=== PATIENT | female | born 1950 | race Caucasian/White ===

== ENCOUNTER 2017-01-08 10:23 | Outpatient (CLI) | payer BC, OTHER ==
--- NOTE | 2017-01-14 18:27 | DIAGNOSTIC IMAGING REPORT ---
REFERRING PHYSICIAN/PROVIDER: Linsey Giang MD CONSULTING WRAPPING MACHINE HELPER: Renny Mckeon MD PROCEDURE: M-mode 2D echocardiography with spectral and color flow Doppler TECHNICAL QUALITY: Fair INDICATION: SOB; CHF RHYTHM DURING PROCEDURE: Normal sinus rhythm INTERPRETATIONS: LEFT VENTRICLE: The left ventricle is normal in size wall thickness and systolic function without any focal wall motion abnormality. The ejection fraction is estimated to be 63%. Normal diastolic function noted. RIGHT VENTRICLE: The right ventricle is normal in size and function. ATRIA: Both atria appear normal in size. The interatrial septum is intact with no evidence for an atrial septal defect MITRAL VALVE: Mitral valve is grossly normal. There is trace mitral regurgitation. AORTIC VALVE: The aortic valve leaflets were not well visualized. Aortic valve leaflets appear mildly thickened. There is no evidence of aortic stenosis there is trace aortic regurgitation noted. TRICUSPID VALVE: Tricuspid valve leaflets are thin and pliable. There is mild tricuspid regurgitation noted. The estimated right ventricular systolic pressure is 40 mmHg. PULMONIC VALVE: The pulmonic valve is not well visualized. There is no pulmonic regurgitation noted. GREAT VESSELS: The great vessels are normal in size. PERICARDIUM: There is no evidence for pericardial effusion IMPRESSION: 1. Normal biventricular size and systolic function 2. Normal biatrial size 3. Mild tricuspid regurgitation 4. Mildly increased right ventricular systolic pressure (RVSP = 40 mmHg)
== END 2017-01-08 23:00 ==
LOC: US SRH 10:23
DX: I07.1 Rheumatic tricuspid insufficiency (principal); R06.9 Unspecified abnormalities of breathing; R06.02 Shortness of breath; R60.9 Edema, unspecified

== ENCOUNTER 2017-04-08 09:51 | Outpatient (CLI) | payer BC, OTHER ==
--- NOTE | 2017-04-08 13:06 | DIAGNOSTIC IMAGING REPORT ---
PROCEDURE: US ART LOWER EXT DOPPLER-LEFT INDICATION: ULCER LEFT LEG TECHNIQUE: Color Doppler duplex imaging of the left lower extremity arterial system was performed. The patient was unable to exercise. COMPARISON: None. FINDINGS: No significant plaque seen VESSELS/ WAVEFORMS: Triphasic PEAK SYSTOLIC VELOCITIES: External iliac: 201 cm/second. Common femoral artery: 132 cm/second. Profunda femoral artery: 77 cm/second. Proximal superficial femoral artery: 137 cm/second. Mid superficial femoral artery: 130 cm/second. Distal superficial femoral artery: 108 cm/second. Popliteal artery: 106 cm/second. Proximal posterior tibial artery: 122 cm/second. Proximal anterior tibial artery: 65 cm/second. Peroneal artery: 81 cm/second. Distal posterior tibial artery: 86 cm/second. IMPRESSION: 1. Normal left lower extremity arterial system
== END 2017-04-08 23:00 | disposition home or self-care (01) ==
LOC: US SRH 09:51
DX: L97.909 Non-pressure chronic ulcer of unspecified part of unspecified lower leg with unspecified severity (principal)